=== PATIENT | female | born 1955 | race Caucasian/White ===

== ENCOUNTER 2019-04-15 17:23 | Day surgery (SDC) | payer BC, OTHER ==
[2019-04-15] MEDS ORDERED: Bupivacaine 0.5% 30 ML SDV ONE (18:29)
[2019-04-15] MEDS ORDERED: Ondansetron 4 MG/2 ML SDV ONE (18:33)
[2019-04-15] MEDS ORDERED: Lidocaine 1% 4 ML ONE (18:33)
[2019-04-15] MEDS ORDERED: Rocuronium 50 MG/5 ML Vial ONE (18:33)
[2019-04-15] MEDS ORDERED: Propofol 200 MG/20 ML SDV ONE (18:33)
[2019-04-15] MEDS ORDERED: Succinylcholine/Normal Saline 100 MG/5 ML Syringe ONE (18:33)
[2019-04-15] MEDS ORDERED: Lactated Ringers 1,000 ML ONE (18:33)
[2019-04-15] MEDS ORDERED: Midazolam 1 MG/ML 2 ML SDV ONE (18:34)
[2019-04-15] MEDS ORDERED: fentaNYL 250 MCG/5 ML SDV ONE (18:34)
[2019-04-15] MEDS ORDERED: Ketorolac 15 MG/ML SDV ONE (18:40)
[2019-04-15] MEDS ORDERED: Dexamethasone 4 MG/ML 5 ML MDV ONE (18:40)
[2019-04-15] MEDS ORDERED: Phenylephrine/Normal Saline 100 MCG/ML 10 ML Syringe ONE (19:05)
[2019-04-15] MEDS ORDERED: Neostigmine Methylsulfate 1 MG/ML 5 ML Syringe ONE (19:20)
--- NOTE | 2019-04-15 19:43 | PCM.POSTAN ---
POST ANESTHESIA ASSESSMENT - MENTAL STATUS Mental Status: Oriented, Other (Drowsy) - VITAL SIGNS Vital Signs: Last Vital Signs Temp 36.6 C 04/15/19 17:30 Pulse 84 04/15/19 17:30 Resp 16 04/15/19 17:30 BP 143/86 H 04/15/19 17:30 Pulse Ox 100 04/15/19 17:30 - RESPIRATORY Respiratory Status: Respiratory Rate WNL, Airway Patent, O2 Saturation Stable, Supplemental Oxygen - CARDIOVASCULAR CV Status: Pulse Rate WNL, Blood Pressure Stable - GASTROINTESTINAL GI Status: No Symptoms - PAIN Pain Score: 0 - POST OP HYDRATION Hydration Status: Adequate & Stable
--- NOTE | 2019-04-15 19:45 | PCM.PREANE ---
Preanesthetic Assessment - Procedure Proposed Procedure: Laparoscopic Appendectomy - Anesthesia/Transfusion/Family Hx Anesthesia History: No Prior Anesthesia Family History of Anesthesia Reaction: No Transfusion History: No Prior Transfusion(s) - Review of Systems General: No Symptoms Pulmonary: No Symptoms Cardiovascular: No Symptoms Gastrointestinal: Abdominal Pain Neurological: No Symptoms Other: Reports: None - Physical Assessment NPO Status Date: 04/15/19 NPO Status Time: 12:00 Vital Signs: Last Vital Signs Temp 36.6 C 04/15/19 17:30 Pulse 84 04/15/19 17:30 Resp 16 04/15/19 17:30 BP 143/86 H 04/15/19 17:30 Pulse Ox 100 04/15/19 17:30 Height: 1.68 m Weight: 57.606 kg ASA Class: 1E Mental Status: Alert & Oriented x3 Airway Class: Mallampati = 1 Dentition: Reports: Normal Dentition (Caps to front top incisors) Thyro-Mental Finger Breadths: 2 Mouth Opening Finger Breadths: 3 ROM/Head Extension: Full Lungs: Clear to Auscultation, Normal Respiratory Effort Cardiovascular: Regular Rate, Regular Rhythm - Lab Values: Reviewed from [facility]. - Allergies Allergies/Adverse Reactions: Allergies Allergy/AdvReac Type Severity Reaction Status Date / Time No Known Allergies Allergy Verified 04/15/19 17:33 - Acknowledgements Anesthesia Type Planned: General Anesthesia Pt an Appropriate Candidate for the Planned Anesthesia: Yes Alternatives and Risks of Anesthesia Discussed w Pt/Guardian: Yes Pt/Guardian Understands and Agrees with Anesthesia Plan: Yes PreAnesthesia Questionnaire - Past Health History Medical/Surgical History: Denies Medical/Surgical History HEENT History: Reports: Impaired Vision Other HEENT History: wears eyeglasses. Cardiovascular History: Reports: High Cholesterol LEGAL SUPPORT ASSISTANT History: Reports: - Infectious Disease History Infectious Disease History: Reports: Measles - SUBSTANCE USE Smoking Status *Q: Never Smoker Second Hand Smoke Exposure: No Recreational Drug Use History: No - HOME MEDS Home Medications: Home Meds Rosuvastatin [Crestor] 10 mg PO DAILY 04/15/19 [History] - CURRENT (IN HOUSE) MEDS Current Meds: Current Medications Discontinued Medications Bupivacaine HCl (Marcaine 0.5%) Confirm Administered Dose 30 ml .ROUTE .STK-MED ONE Stop: 04/15/19 18:30 Dexamethasone (Dexamethasone) Confirm Administered Dose 20 mg .ROUTE .STK-MED ONE Stop: 04/15/19 18:41 Fentanyl (Sublimaze) Confirm Administered Dose 250 mcg .ROUTE .STK-MED ONE Stop: 04/15/19 18:35 Glycopyrrolate () Confirm Administered Dose 1 mg .ROUTE .STK-MED ONE Stop: 04/15/19 19:21 Lidocaine HCl (Xylocaine-Mpf 1%) Confirm Administered Dose 4 mls @ as directed .ROUTE .STK-MED ONE Stop: 04/15/19 18:34 Lactated Ringer's (Ringers, Lactated) Confirm Administered Dose 1,000 mls @ as directed .ROUTE .STK-MED ONE Stop: 04/15/19 18:34 Cefoxitin Sodium (Mefoxin In Dextrose,Iso-Osm 2 Gm/50 Ml) Confirm Administered Dose 50 mls @ as directed .ROUTE .STK-MED ONE Stop: 04/15/19 18:35 Ketorolac Tromethamine (Toradol) Confirm Administered Dose 15 mg .ROUTE .ST- MED ONE Stop: 04/15/19 18:41 Midazolam HCl (Versed 1 Mg/Ml) Confirm Administered Dose 2 mg .ROUTE .STK-MED ONE Stop: 04/15/19 18:35 Neostigmine Methylsulfate (Neostigmine) Confirm Administered Dose 5 mg .ROUTE .STK-MED ONE Stop: 04/15/19 19:21 Ondansetron HCl (Zofran) Confirm Administered Dose 4 mg .ROUTE .STK-MED ONE Stop: 04/15/19 18:34 Phenylephrine HCl (Phenylephrine In Ns 100 Mcg/Ml) Confirm Administered Dose 1 mg .ROUTE .STK-MED ONE Stop: 04/15/19 19:06 Propofol (Diprivan 20 Ml) Confirm Administered Dose 400 mg .ROUTE .STK-MED ONE Stop: 04/15/19 18:34 Rocuronium [place] (Zemuron) Confirm Administered Dose 50 mg .ROUTE .STK-MED ONE Stop: 04/15/19 18:34 Succinylcholine Chloride (Succinylcholine In Ns Pf) Confirm Administered Dose 100 mg .ROUTE .STK-MED ONE Stop: 04/15/19 18:34
[2019-04-15] MEDS ORDERED: HYDROmorphone 0.5 MG/0.5 ML Syringe IVPUSH PRN (19:46)
[2019-04-15] MEDS ORDERED: diphenhydrAMINE 50 MG/ML SDV IVPUSH PRN (19:46)
[2019-04-15] MEDS ORDERED: Ondansetron 4 MG/2 ML SDV IVPUSH PRN (19:46)
[2019-04-15] MEDS ORDERED: Scopolamine 1.5 MG Transdermal Patch TOP ONE (19:56)
[2019-04-15] MEDS: fentaNYL 100 MCG/2 ML SDV IVPUSH PRN ×2 (20:07→20:34)
[2019-04-15 23:32] VITALS: BP 117/50; PULSE 74
--- NOTE | 2019-04-16 00:27 | HP ---
DATE OF ADMISSION: 04/15/2019 CHIEF COMPLAINT: Abdominal pain. HISTORY OF PRESENT ILLNESS: The patient is a 63-year-old female, who works as a blood bank laboratory technologist. She presented to the [facility] complaining of right lower quadrant abdominal pain. She has had this pain since Thursday, it is now Thursday evening. Pain is 5/10 in intensity. It is crampy in nature. She says it is worsened by movement. She has had no prior episodes. She denied any nausea, vomiting, diarrhea, shaking chills, fever, previous episodes. PAST MEDICAL HISTORY: Hypercholesterolemia. PAST SURGICAL HISTORY: None. ALLERGIES TO MEDICATIONS: None. CURRENT MEDICATIONS: Crestor 10 mg p.o. daily. SOCIAL HISTORY: Toxic habits: She denies illicit drugs. She has never smoked. She has 1 alcoholic beverage per month. FAMILY HISTORY: Significant for coronary artery disease and melanoma in her mother. REVIEW OF SYSTEMS: She has had no prior colonoscopy. 10 system review is otherwise negative except for that listed above. PHYSICAL EXAMINATION: GENERAL: She is alert. She looks in no obvious distress. VITAL SIGNS: Within normal limits. HEAD AND NECK: Normocephalic, atraumatic. NECK: Supple. Full range of motion. LUNGS: Clear to auscultation bilaterally. HEART: Regular rate and rhythm. No clicks, murmurs, or rubs. ABDOMEN: Soft. She has exquisite tenderness over McBurney's point with a positive Rovsing sign. No palpable masses are present. No hernias are present. I cannot appreciate hepatosplenomegaly. EXTREMITIES: No clubbing, cyanosis, or edema. No calf tenderness. INTEGUMENT: No rashes. No lesions. No petechiae. No jaundice. NEUROLOGIC: Her cranial nerves are grossly intact. Sensation and movement are preserved in all 4 extremities. PSYCHIATRIC: Her affect and demeanor are appropriate. She has linear thinking. She is oriented to time, place, and person. LABORATORY DATA: Labs showed a normal white count. CT scan was notable for very large appendicitis at 1.9 cm with an appendicolith. ASSESSMENT: Acute appendicitis. PLAN: I will perform a laparoscopic appendectomy. She was thoroughly informed of the major risks, benefits, and alternatives of the procedure. These include, but are not limited to, conversion to open, bleeding, injury to bowel, injury to any abdominal structure, reoperation, hernias of the port sites, infection, abscess formation, and many other. She gave informed consent. She will get 1 dose of preoperative antibiotics, and we will bring her to the operating room as soon as possible. I offered her conservative management, which would be nonoperative including antibiotics, and she declined. She would like her appendix out tonight. RACHELE /[id number]
--- NOTE | 2019-04-16 01:27 | OR ---
DATE OF OPERATION: 04/15/2019 SURGEON: Hussain Moore MD PREOPERATIVE DIAGNOSIS: Acute appendicitis. POSTOPERATIVE DIAGNOSIS: Acute appendicitis. OPERATION PERFORMED: Laparoscopic appendectomy. FINDINGS: She had quite a large appendix with periappendiceal inflammation. There was no generalized peritonitis. No evidence of perforation was identified. ANESTHESIA: General with endotracheal intubation. ESTIMATED BLOOD LOSS: Minimal. COMPLICATIONS: None. PATHOLOGY: Appendix. DISPOSITION: Stable at the end the procedure. INDICATIONS: The patient is a 63-year-old female with no prior surgical history. She presented with 2-day history of abdominal pain. She was worked up with a CT scan which demonstrated acute appendicitis. Physical exam was consistent with the diagnosis. She was offered both conservative and operative approach. She opted for an operative approach. She was fully informed of the major risks, benefits, and alternatives. She gave informed consent. Please see my previous dictation for details of that discussion. DESCRIPTION OF PROCEDURE: The patient was brought to the operating room and placed in a supine position on the operating table. She was given general anesthesia and intubated. The abdomen was prepped and draped in usual sterile fashion. A Veress needle insertion was obtained in the left upper quadrant. There was insufflation to a pressure of 15 mmHg with CO2 gas. I introduced a 10-mm optical port in the left lower quadrant under direct visualization. I visualized the tissue planes as the port passed into the peritoneum. There was no contact to underlying bowel. I visualized the Veress needle up in the air in the left upper quadrant. Two additional 5-mm ports were passed, 1 in the umbilicus and 1 in the suprapubic location. The patient was placed in a Trendelenburg position with the right side up. Identified the appendix. The appendix was quite large. I created a window in the mesoappendix with a [place] dissector. I then passed a blue load linear stapler across the base of the appendix and fired it transecting the appendix. I then used a white load to transect the mesoappendix. There was a small amount of bleeding from the mesoappendix and this was easily controlled with hemostatic clips. The appendix was placed in an EndoCatch bag and temporarily left in the peritoneum. I thoroughly mopped up the small amount of blood loss which accumulated from the appendiceal artery. This was done with Surgicel. Surgicel was then removed from the abdomen. The appendix was removed through the 10-mm port site, and then a stitch passer was used to obliterate the defect in a [id number] fashion laparoscopically using 0 Vicryl suture under direct laparoscopic visualization. A thorough inspection of the abdomen failed to demonstrate any further pathology. There was no bleeding at the end of the procedure. The scope was withdrawn. Air was evacuated through the open ports and then the ports were removed. 4-0 Monocryl was used to close the skin. The 0 Vicryl suture was tied down to obliterate that small defect. Dermabond was applied for sterile barrier. She had no complications and tolerated the procedure well. She was awakened from anesthesia and moved to recovery in stable condition. RACHELE /[id number]
--- NOTE | 2019-04-16 17:49 | PCM48HPAN ---
Post Anesthesia Note - EVALUATION WITHIN 48HRS OF ANESTHETIC Vital Signs in Normal Range: Yes Patient Participated in Evaluation: Yes Respiratory Function Stable: Yes Airway Patent: Yes Cardiovascular Function Stable: Yes Hydration Status Stable: Yes Pain Control Satisfactory: Yes Nausea and Vomiting Control Satisfactory: Yes Mental Status Recovered: Yes Vital Signs: Last Vital Signs Temp 36.4 C 04/15/19 23:01 Pulse 74 04/15/19 23:01 Resp 16 04/15/19 23:01 BP 117/50 L 04/15/19 23:01 Pulse Ox 96 04/15/19 23:01
== END 2019-04-15 23:30 | disposition home or self-care (01) ==
LOC: JD.ED 17:23 → JD.SDS 18:23
PROVIDERS: ATTEND Surgery
DX: K35.20 Acute appendicitis with generalized peritonitis, without abscess (principal); K38.1 Appendicular concretions; E78.00 Pure hypercholesterolemia, unspecified; Z79.899 Other long term (current) drug therapy
CPT/HCPCS: 44970; 99284; A9270; J0330; J0694; J1100; J1170; J1885; J2001; J2250; J2370; J2405; J2704; J2710; J3010; J3490; J7120; 00840